=== PATIENT | female | born 1955 | race Caucasian/White ===

== ENCOUNTER 2017-01-03 20:57 | Emergency (ER) | payer SELFPAY ==
[2017-01-03 21:11] VITALS: BP 102/63; PULSE 84; RESP 18; TEMP 98
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
--- NOTE | 2017-01-03 21:46 | XR ---
Right forearm HISTORY: Trauma and pain 2 views of the right forearm Bone mineralization, joint spaces and alignment are maintained IMPRESSION: No fracture or dislocation.
--- NOTE | 2017-01-03 21:46 | XR ---
Right hand HISTORY: Trauma and pain 3 views of the right Bone mineralization, joint spaces and alignment are maintained IMPRESSION: No fracture or dislocation.
== END 2017-01-03 21:58 | disposition home or self-care (01) ==
LOC: EC 20:57
DX: S40.021A Contusion of right upper arm, initial encounter (principal); Z88.5 Allergy status to narcotic agent; V43.62XA Car passenger injured in collision with other type car in traffic accident, initial encounter
CPT/HCPCS: 99283

== ENCOUNTER → 2025-02-17 | Day surgery (SDC) | payer MEDICARE ==
[~2025-02-17] MED LIST: DEXAMETHASONE SOD PHOSPHATE 4 MG/ML 1 ML VIAL IV ONE; LACTATED RINGERS 1,000 ML IV SCH; MIDAZOLAM 2 MG/2 ML VIAL IV PRN; ONDANSETRON 4 MG/2 ML VIAL IVP ONE; Pre Op ABX Message 1 EACH MISC MISCELLANE ONE; fentaNYL (PF) 50 MCG/ML 2 ML AMP IV PRN
== END ==
LOC: OR 07:30
PROVIDERS: ATTEND Podiatrist
DX: Z53.9 Procedure and treatment not carried out, unspecified reason (principal)

== ENCOUNTER 2025-03-03 08:34 | Day surgery (SDC) | payer MEDICARE ==
[~2025-03-03 08:34] MED LIST changes: -DEXAMETHASONE SOD PHOSPHATE 4 MG/ML 1 ML VIAL IV ONE; -LACTATED RINGERS 1,000 ML IV SCH; -MIDAZOLAM 2 MG/2 ML VIAL IV PRN; -ONDANSETRON 4 MG/2 ML VIAL IVP ONE; -fentaNYL (PF) 50 MCG/ML 2 ML AMP IV PRN
[2025-03-03] MEDS ORDERED: HYDROmorphone 0.5 MG/0.5 ML SYRINGE IVP PRN (08:44)
[2025-03-03] MEDS ORDERED: fentaNYL (PF) 50 MCG/ML 2 ML AMP IVP PRN (08:44)
[2025-03-03] MEDS ORDERED: LIDOCAINE 1% (10MG/ML) FOR IV START INTRADERMA PRN (08:44)
[2025-03-03] MEDS ORDERED: MIDAZOLAM 2 MG/2 ML VIAL IV PRN (08:44)
[2025-03-03] MEDS: LACTATED RINGERS 1,000 ML IV SCH (09:19)
[2025-03-03] MEDS: IV FLUID CONTINUATION 1,000 ML IV ONE (09:19)
[2025-03-03 09:30] LABS: Glucose,Whole Blood 91 mg/dL (70-110)
[2025-03-03] MEDS: DEXAMETHASONE SOD PHOSPHATE 4 MG/ML 1 ML VIAL IV ONE (09:31)
[2025-03-03] MEDS: HYDROCORTISONE SUCCINATE 100 MG/2 ML VIAL IV STA (09:31)
[2025-03-03] MEDS: ONDANSETRON 4 MG/2 ML VIAL IVP ONE (09:31)
[2025-03-03] MEDS: FAMOTIDINE 20 MG/2 ML VIAL IV STA (09:40)
[2025-03-03 09:55] LABS: Basophils # (A) 0.04 10*3/uL (0.00-0.10); Basophils % (A) 0.7 %; Eosinophils # (A) 0.10 10*3/uL (0.04-0.35); Eosinophils % (A) 1.6 %; HCT 39.8 % (37.2-46.3); HGB 12.4 g/dL (12.0-15.0); Lymphocytes # (A) 2.06 10*3/uL (0.90-5.00); Lymphocytes % (A) 33.9 %; MCH 28.6 pg (27.0-32.0); MCHC 31.2 g/dL (32.0-37.0); MCV 91.7 fL (80.0-97.0); Monocytes # (A) 0.48 10*3/uL (0.20-1.00); Monocytes % (A) 7.9 %; Neutrophils # (A) 3.35 10*3/uL (1.80-7.70); Neutrophils % (A) 55.2 %; Platelet Count 168 10*3/uL (140-440); RBC 4.34 10*6/uL (4.10-5.20); RDW 17.2 % (11.5-14.5); WBC 6.07 10*3/uL (4.50-10.00)
[2025-03-03 10:21] LABS: INR 1.0 (<1.2); Prothrombin Time 11.0 sec (10.0-12.5)
[2025-03-03] MEDS ORDERED: MIDAZOLAM 2 MG/2 ML VIAL ONE (10:21)
[2025-03-03] MEDS ORDERED: PHENYLEPHRINE-0.9% NACL SYG 1,000 MCG/10 ML SYRINGE ONE (10:21)
[2025-03-03 10:26] LABS: ALT 17 U/L (4-34); AST 17 U/L (14-36); African American GFR (CKD) 61 (>60 ml/min/1.73 sqM); Albumin 4.1 g/dL (3.5-5.0); Alkaline Phosphatase 57 U/L (38-126); Anion Gap 8 mmol/L; Blood Urea Nitrogen 21 mg/dL (7-17); Calcium 8.7 mg/dL (8.4-10.2); Carbon Dioxide 29 mmol/L (22-30); Chloride 105 mmol/L (98-107); Glucose 95 mg/dL (74-99); Non-African American GFR(CKD) 53 (>60 ml/min/1.73 sqM); Potassium 4.0 mmol/L (3.5-5.1); Sodium 142 mmol/L (137-145); Total Protein 6.9 g/dL (6.3-8.2)
[2025-03-03] MEDS: CEFAZOLIN IV ONE (10:29)
[2025-03-03] MEDS: FLUID CONTINUATION IV ONE (10:29)
--- NOTE | 2025-03-03 11:22 | P.OP ---
Date of Procedure: 03/03/25 Preoperative Diagnosis: Right ankle instability Postoperative Diagnosis: Same Procedure(s) Performed: Secondary repair right lateral ankle ligaments Implants: Arthrex internal brace Arthrex fiber tack anchors x 2 Anesthesia: GUILHERME Surgeon: Contreras Cordero Pathology: none sent Condition: stable Disposition: PACU Description of Procedure: The patient was brought into the op room placed on table in supine position. Timeout was taken to confirm correct patient identifiers, correct laterality of surgery, and correct procedure. Once all staff in the room was in agreement the timeout, the patient was positioned for spinal anesthesia. Anesthesia performed a spinal without complication. Then the patient was positioned on the operating table. A well-padded tourniquet was placed on the right calf and a wedge beneath the right hip to internally rotate the leg. The right leg was prepped and draped usual manner. The leg was exsanguinated and the tourniquet inflated to 250 mmHg. Attention was directed over the anterior lateral ankle. A curved incision was made just anterior to the lateral malleolus. The incision was deepened down to the subcutaneous tissue careful to identify, void, and retracting neurovascular structures and cauterize any bleeding vessels. Blunt dissection was taken down to the joint capsule. The capsule and ligamentous structures were sharply incised off the anterior surface of the lateral malleolus. A rongeur was used to remove the cortical bone on the anterior surface of the lateral malleolus which allow for better soft tissue release lesion upon repair. Blunt dissection was done over the anterior talofibular ligament insertion on the neck of the talus. A small stab incision was made through the tissue and then a drill hole for the 4.75 anchor was made in the talar body just anterior to the joint surface. The hole was tapped and the anchor inserted down to proper depth. The same drill was used to create the drill hole for the 3.5 mm anchor in the lateral malleolus. Drill holes for the Fibertack anchors were made 1 inferior 1 superior to the 3.5 mm drill hole. The anchors were inserted and impacted down to proper depth. The wound was thoroughly irrigated with antibiotic saline. The Fibertack suture was used to capture the distal ligamentous structures. The ankle was held in maximum eversion and dorsiflexion with a bump under the posterior ankle allow for posterior translation of the talus. While the foot was in this position the suture was tied to bring the ligaments back down to the lateral malleolus. The 2 arms of suture from the 4.75 mm anchor were then inserted into 3.5 mm anchor. This was aligned with the drill hole in the fibula. Proper tensioning techniques were utilized and then the anchor inserted and advanced to proper depth locking the suture in place. Inversion stress and anterior drawer were performed at this time and both were negative. The Fibertack suture was then used to sew the soft tissue flap on the fibula over the repair site in a pants over vest fashion. The wound was irrigated with antibiotic saline. Subcutaneous closure was done with 4 Monocryl. Skin closure was done with dermal glue and Steri-Strips. Arthrex jumpstart and dry sterile dressing were applied to the ankle. The tourniquet was released and capillary refill returned to all digits on the foot. The patient was placed in a below-knee fracture boot the ankle moves position. The patient was taken recovery vital signs stable
[2025-03-03 11:32] VITALS: TEMP 97
[2025-03-03 13:14] VITALS: BP 117/64; PULSE 88; RESP 17
== END 2025-03-03 13:38 | disposition home or self-care (01) ==
LOC: OR 08:34
PROVIDERS: ATTEND Podiatrist
DX: M25.371 Other instability, right ankle (principal); S93.491D Sprain of other ligament of right ankle, subsequent encounter; S93.411D Sprain of calcaneofibular ligament of right ankle, subsequent encounter; I11.9 Hypertensive heart disease without heart failure; I25.2 Old myocardial infarction; E78.5 Hyperlipidemia, unspecified; I73.9 Peripheral vascular disease, unspecified; E03.9 Hypothyroidism, unspecified; J45.909 Unspecified asthma, uncomplicated; K21.9 Gastro-esophageal reflux disease without esophagitis; M19.90 Unspecified osteoarthritis, unspecified site; F32.A Depression, unspecified; F17.200 Nicotine dependence, unspecified, uncomplicated; Z79.01 Long term (current) use of anticoagulants; Z79.51 Long term (current) use of inhaled steroids; Z79.890 Hormone replacement therapy; Z79.52 Long term (current) use of systemic steroids; Z79.02 Long term (current) use of antithrombotics/antiplatelets; Z79.82 Long term (current) use of aspirin; Z79.899 Other long term (current) drug therapy; Z86.711 Personal history of pulmonary embolism; Z86.718 Personal history of other venous thrombosis and embolism; Z95.5 Presence of coronary angioplasty implant and graft; Z95.820 Peripheral vascular angioplasty status with implants and grafts; Z94.2 Lung transplant status
CPT/HCPCS: 80053; 85025; 85610; 27698; J1100; J1720; J2405; J0690; J1308